=== PATIENT | male | born 1990 | race Caucasian/White ===

== ENCOUNTER 2017-05-16 21:46 | Emergency (ER) | payer OTHER ==
[~2017-05-16 21:46] MED LIST: MOTRIN800 MG PO; PREDNISONE 10MG10 M1 PO
[2017-05-16 21:54] VITALS: BP 102/63
--- NOTE | 2017-05-16 22:12 | ED EYE COMPLAINT ---
History of Present Illness General Chief Complaint: Eye Problems Stated Complaint: "METAL IN RIGHT EYE" PER PT Source: patient Exam Limitations: no limitations Vital Signs & Intake/Output Vital Signs & Intake/Output Vital Signs Date Time Temp Pulse Resp B/P B/P Pulse O2 O2 Flow FiO2 Mean Ox Delivery Rate 05/16 2154 97.6 92 17 102/63 97 Room Air Allergies Coded Allergies: NO KNOWN ALLERGIES (10/31/13) Reconcile Medications Ibuprofen (Motrin) 800 MG TAB 1 TAB PO Q8H PRN pain/fevers Ketorolac Tromethamine (Acular Ls) 0.4 % DROPS 1 GTT OD 4 TIMES/DAY pain Polytrim (Polytrim Eye Drops) 10,000 UNIT-1 MG/ML DROPS 1 GTT OPH Q6 foreign body Prednisone 10 MG TABLET 1 TAB PO TAPER PHARYNGITIS DAY 1: 5 TABS PO QD DAY 2,3: 3 TABS PO QD DAY 4,5: 1 TAB PO QD Triage Note: PT TO ED WITH C/O FOREIGN BODY IN RIGHT EYE. 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 TRIED TO FLUSH EYE ON OWN. REDNESS, TEARING NOTED. Triage Nurses Notes Reviewed? yes Onset: Abrupt Duration: hour(s): (9 am) Timing: single episode today Injury Environment: work Severity: moderate, severe No Modifying Factors: none HPI: 26-year-old male comes into the emergency room for further evaluation of metal foreign body to right eye. Patient reports that this morning while grinding metal piece flew in his right eye at work. He has felt that there all day. He has some associated pain and discomfort. Denies any vision loss. Denies wearing any contacts. Denies any other associated symptoms. (Kevon Monet) Past History Travel History Traveled to [place] past 21 day No Medical History Any Pertinent Medical History? none Surgical History Surgical History: non-contributory Psychosocial History What is your primary language Mongolian Tobacco Use: Never used Daily Tobacco Use Amount/Type: =< 4 Cigarettes daily ETOH Use: denies use Illicit Drug Use: denies illicit drug use Family History Hx Contributory? No (Kevon Monet) Review of Systems Review of Systems Constitutional: Reports: no symptoms. Eyes: Reports: see HPI. Ear: Reports: no symptoms. Nose: Reports: no symptoms. Mouth: Reports: no symptoms. Throat: Reports: no symptoms. Respiratory: Reports: no symptoms. Cardiovascular: Reports: no symptoms. GI: Reports: no symptoms. Genitourinary: Reports: no symptoms. Musculoskeletal: Reports: no symptoms. Skin: Reports: no symptoms. Neurological/Psychological: Reports: no symptoms. Hematologic/Endocrine: Reports: no symptoms. Immunologic/Allergic: Reports: no symptoms. All Other Systems: Reviewed and Negative (Kevon Monet) Physical Exam General Appearance: well developed/nourished, mild distress General Inspection: normal inspection Eyelid: normal inspection Conjunctiva/Sclera: normal inspection Cornea: normal inspection EOM: intact General Inspection: normal inspection Eyelid: normal inspection Conjunctiva/Sclera: metal foreign body Cornea: examined w/fluorescein, foreign body, no abrasion appreciated EOM: intact Pupil: normal accommodation, normal pupil, PERRL Anterior Chamber: normal inspection Eye Right 1) Physical Exam Head: atraumatic Nose: normal inspection Mouth/Throat: normal mouth inspection Neck: normal inspection, supple Cardiovascular/Respiratory: normal breath sounds, regular rate/rhythm Neurologic/Psych: awake, alert, oriented x 3, normal mood/affect Skin: intact, normal color, warm/dry (Kevon Monet) Progress Differential Diagnosis: corneal abrasion, corneal foreign body, conjunctivitis, detached retina, glaucoma, globe rupture, retinal art./v. occlusion, eye foreign body Plan of Care: 05/16/2017 10:44:03 PM Patient clinically looks well. Foreign body removal was attempted and unsuccessful. Patient was told to follow up with mri technician tomorrow. Patient was started on antibiotic drops. Workmen's Comp. information filled out. Return if any other concerns. Tetanus shot is up to date. (Kevon Monet) Departure Departure Disposition: HOME OR SELF CARE Condition: Stable Clinical Impression Primary Impression: Foreign body of right eye Referrals: Ephraim BOYLE,Tom Reynolds (PCP/Family) Joshua BOYLE,Jesus Pacheco Additional Instructions: Use Polytrim drops and Toradol drops as prescribed. Call mri technician tomorrow for follow-up appointment. Foreign body is still in the right eye and needs to be removed. Return immediately if any other concerns worsening symptoms. Please go over all results of today's visit with your primary care doctor. Contact your primary care doctor to let them know you were here in the emergency room. There may be nonspecific findings which may not be related to your visit today here in the emergency room but may require further evaluation and chronic monitoring by your primary care doctor. If you had a laceration today the chance of foreign body always remains. You should follow-up with your primary care doctor for recheck in 3-5 days for a wound check. If you had an x-ray done there is a chance that a fracture could have been missed on initial read and you should follow-up with your primary care doctor for repeat x-rays if symptoms persist. If your blood pressure was elevated here in the emergency room please have rechecked by [facility] primary care doctor within the next 48. If you were prescribed a narcotic here in the emergency room or any type of controlled substances you're not allowed to drive while taking this medication or operate any type of heavy machinery. Narcotics can make you feel lightheaded dizziness nausea and can cause constipation. You may need to bean picker a stool softener. Thank you for choosing [facility] emergency room. Please return to the emergency room immediately if you have any other concerns worsening of symptoms. Departure Forms: Customer Survey General Discharge Information Prescriptions: Current Visit Scripts Polytrim (Polytrim Eye Drops) 1 GTT OPH Q6 #10 ML Ketorolac Tromethamine (Acular Ls) 1 GTT OD 4 TIMES/DAY #5 ML (Kevon Monet) PA/[employer] Co-Sign Statement Statement: ED Attending supervision documentation- I saw and evaluated the patient. I have also reviewed all the pertinent lab results and diagnostic results. I agree with the findings and the plan of care as documented in the PA's/[employer]'s documentation. x I have reviewed the ED Record and agree with the PA's/[employer]'s documentation. [] Additions or exceptions (if any) to the PAs/[employer]'s note and plan are summarized below: [] (Barbara BOYLE,Toy) ED Attending Observation Initial Observation Note: I have seen and personally examined ALEM ARITA on 05/16/17 at 2243. I agree with the current emergency department documentation. The disposition (admission or discharge) is uncertain at this time, he needs a period of observation for the following reason(s): The ED Nurse caring for this patient has been personally informed as to what the patient is being observed for. (Chris Moneton)
[2017-05-16] MEDS ORDERED: ACULAR LS5 ML OD (22:22)
[2017-05-16] MEDS ORDERED: POLYTRIM EYE DR10 ML OPH (22:22)
== END 2017-05-16 22:41 ==
LOC: ERH 21:46
DX: T15.91XA Foreign body on external eye, part unspecified, right eye, initial encounter (principal)